=== PATIENT | male | born 2000 | race Caucasian/White ===

== ENCOUNTER 2020-04-06 22:21 | Emergency (ER) | payer OTHER ==
[~2020-04-06] VITALS: Ht 172.7 cm; Wt 104.5 kg
[2020-04-06] MEDS ORDERED: PHENERGAN 25 TA25 MG PO (22:57)
[2020-04-06 23:09] VITALS: TEMP 98.3
[2020-04-06 23:58] LABS: STREP SCREEN NEGATIVE
[2020-04-07 00:13] VITALS: BP 118/59; PULSE 88
== END 2020-04-07 00:15 | disposition home or self-care (01) ==
LOC: COL.ER 22:21 → EDBD 22:22 → COL.ER 22:22
PROVIDERS: Emergency Medicine
DX: B34.9 Viral infection, unspecified (principal); Z20.828 Contact with and (suspected) exposure to other viral communicable diseases
CPT/HCPCS: J2550

== ENCOUNTER 2024-05-26 16:53 | Emergency (ER) | payer OTHER ==
[~2024-05-26] VITALS: Ht 172.7 cm; Wt 118.2 kg
[~2024-05-26 16:53] MED LIST: PHENERGAN 25 TA25 MG PO
[2024-05-26 17:08] VITALS: TEMP 98.6
[2024-05-26 17:55] LABS: COLLECTION METHOD CLEAN CATCH
[2024-05-26] MEDS ORDERED: NS 1,000 ML IV ONE (18:00)
[2024-05-26] MEDS ORDERED: Ketorolac 30 MG/ML VIAL IV ONE (18:00)
[2024-05-26 18:04] LABS: URINE APPEARANCE CLEAR (CLEAR/HAZY); URINE BLOOD NEGATIVE (NEGATIVE); URINE COLOR YELLOW (YELLOW); URINE GLUCOSE NEGATIVE (NEGATIVE); URINE KETONE TRACE (NEGATIVE); URINE NITRATE NEGATIVE (NEGATIVE); URINE PROTEIN(semi-quant) TRACE (NEGATIVE)
[2024-05-26 18:06] LABS: BASO # 0.1 K/mm3 (0.0-0.2); BASO % 0.9 % (0.0-2.0); EOS # 0.3 K/mm3 (0.0-0.7); EOS % 3.5 % (0.0-4.0); GRAN # 4.3 K/mm3 (1.4-6.5); GRAN % 52.2 % (42.2-75.2); HEMATOCRIT 44.7 % (42.0-52.0); HEMOGLOBIN 15.5 g/dl (13.5-18.0); LYMPH # 2.8 K/mm3 (1.2-3.4); LYMPH % 34.6 % (20.0-51.0); MEAN CELL VOLUME 86 fl (80.0-100.0); MEAN CORPUSCULAR HEMOGLOBIN 30 pg (27-31); MEAN CORPUSCULAR HGB CONC 35 g/dl (33.0-37.0); MEAN PLATELET VOLUME 9.4 fl (7.4-10.4); MONO # 0.7 K/mm3 (0.1-0.6); MONO % 8.3 % (1.7-9.3); PLATELET COUNT 305 K/mm3 (130-400); RED BLOOD COUNT 5.22 M/mm3 (4.20-5.60); REDCELL DISTRIBUTION WIDTH-CV 11.5 % (11.5-14.5)
[2024-05-26 18:23] LABS: ALBUMIN 4.2 g/dL (3.5-5.0); BILIRUBIN,TOTAL 0.4 mg/dL (0.2-1.2); C-REACTIVE PROTEIN 0.59 mg/dL (0.00-0.50); CALCIUM 9.5 mg/dL (8.4-10.2); CREATININE, serum 1.1 mg/dL (0.72-1.25); POTASSIUM 3.7 mEq/L (3.5-4.5); TOTAL PROTEIN 8.4 g/dl (6.2-8.1)
[2024-05-26] MEDS ORDERED: Iohexol 350 - 100 ML VIAL IV ONE (19:25)
[2024-05-26] MEDS ORDERED: NS 50 ML IV ONE (19:27)
[2024-05-26] MEDS ORDERED: Home HYDROcodone/Acetaminophen 5/325 MG #4 TABS/PACK PO ONE (20:30)
[2024-05-26 20:38] VITALS: BP 104/60; PULSE 58
== END 2024-05-26 20:45 | disposition home or self-care (01) ==
LOC: COL.ER 16:53
PROVIDERS: Nurse Practitioner
DX: R10.31 Right lower quadrant pain (principal); F17.290 Nicotine dependence, other tobacco product, uncomplicated
CPT/HCPCS: J1885; J7030; Q9967